=== PATIENT | male | born 1960 | race Caucasian/White ===

== ENCOUNTER → 2023-09-26 | Outpatient (CLI) | payer OTHER ==
[~2023-09-26] MED LIST: SIME80CH PO
== END | disposition home or self-care (01) ==
LOC: LAB SHORT 10:43 → LAB 10:43
DX: C44.719 Basal cell carcinoma of skin of left lower limb, including hip (principal)
CPT/HCPCS: 88305

== ENCOUNTER → 2023-10-04 | Outpatient (CLI) | payer OTHER | LOC: LAB SHORT 10:33 → LAB 10:33 | DX: C44.719 Basal cell carcinoma of skin of left lower limb, including hip (principal) | CPT/HCPCS: 88305 ==

== ENCOUNTER → 2023-10-12 | Outpatient (CLI) | payer OTHER | END | disposition home or self-care (01) | LOC: LAB 08:22 → LAB SHORT 08:22 | DX: C44.91 Basal cell carcinoma of skin, unspecified (principal) | CPT/HCPCS: 88305 ==

== ENCOUNTER 2023-10-25 08:23 | Day surgery (SDC) | payer OTHER ==
[~2023-10-25] VITALS: Ht 172.7 cm; Wt 75.0 kg
[~2023-10-25 08:23] MED LIST changes: +Lactated Ringer's 1,000 ML IV ONE; +propofoL 50 ML IV ONE
[2023-10-25] MEDS ORDERED: LOSA25 (09:15)
[2023-10-25] MEDS ORDERED: Lactated Ringer's 1,000 ML IV ONE (09:30)
[2023-10-25] MEDS ORDERED: MULVITA (09:31)
[2023-10-25 10:30] VITALS: BP 100/72
== END 2023-10-25 10:32 | disposition home or self-care (01) ==
LOC: ORSCSDS 08:23
PROVIDERS: Surgery
PROC: 0DJD8ZZ Inspection of Lower Intestinal Tract, Via Natural or Artificial Opening Endoscopic (ICD-10-PCS; principal; 2023-10-25 09:45)
DX: Z12.11 Encounter for screening for malignant neoplasm of colon (principal); Z86.010 Personal history of colon polyps; I10 Essential (primary) hypertension; F41.9 Anxiety disorder, unspecified; E78.2 Mixed hyperlipidemia; F32.A Depression, unspecified; F17.210 Nicotine dependence, cigarettes, uncomplicated; Z79.899 Other long term (current) drug therapy
CPT/HCPCS: J2704; J7120